=== PATIENT | female | born 1975 | race Caucasian/White ===

== ENCOUNTER 2016-12-06 15:24 | Emergency (ER) | payer OTHER ==
[~2016-12-06] VITALS: Ht 167.6 cm; Wt 91.1 kg
[~2016-12-06 15:24] MED LIST: ALKA-SELTZER P1 EAC7 PO; BACTRIM,SEPT1 TABLET PO; COLACE100 MG PO; ENDOCET 5-3251 EACH PO; IBUPROFEN800 MG PO; LORTAB 5-325 M1 EACH PO; MIRALAX255 GM PO; MOTRIN600 MG PO; NAPROSYN250 MG PO; NAPROSYN500 MG PO; PROZAC20 MG PO; SKELAXIN800 MG PO; SYNTHROID75 MCG PO; SYNTHROID88 MCG PO; ULTRAM50 MG PO
[2016-12-06] MEDS ORDERED: LOSARTAN POTASS50 MG PO (16:09)
[2016-12-06 16:14] LABS: ADD MIUA? YES; BILIRUBIN NEGATIVE; BLOOD NEGATIVE; COLOR YELLOW ((YELLOW)); GLUCOSE (STRIP) NEGATIVE; KETONES NEGATIVE; LEUKOCYTES NEGATIVE; NITRITE NEGATIVE; PROTEIN (STRIP) 30; SPECIFIC GRAVITY 1.027 (1.000-1.030); UROBILINOGEN 0.2 MG/DL (0.2-1.0)
[2016-12-06 16:16] LABS: HEMATOCRIT 37.2 % (36.0-46.0); MCH 29.1 PG (29.0-34.0); MCHC 32.8 G/DL (30.0-36.0); MCV 88.8 FL (83-99); MEAN PLAT.VOLUME 10.4 uM^3 (9.5-12.4); PLATELET COUNT 244 K/uL (156-360); RBC DIS.WIDTH-CV 12.7 % (11.8-14.6); RBC DIS.WIDTH-SD 41.2 % (39-53); RED BLOOD COUNT 4.19 M/uL (3.80-5.20); WHITE BLOOD COUNT 8.2 K/uL (4.1-10.2)
[2016-12-06 16:27] LABS: CHLORIDE 105 mEq/L (99-109); POTASSIUM 4.3 mEq/L (3.7-5.4); SODIUM 138 mEq/L (136-147)
[2016-12-06 16:28] LABS: AMYLASE 48 IU/L (1-118)
[2016-12-06 16:30] LABS: BACTERIA 1+ /HPF; EPITHELIAL CELLS 1+ /HPF; MUCUS 3+ /LPF; RED BLOOD CELLS 0-5 /HPF (0-5); UCUL ADDED? NO; WHITE BLOOD CELLS 0-5 /HPF (0-5)
[2016-12-06 16:30] LABS: GLUCOSE 86 mg/dL (70-99)
[2016-12-06 16:31] LABS: ANION GAP 9 MEQ/L (2-14); TOTAL BILIRUBIN 0.2 mg/dL (0.0-1.0)
[2016-12-06 16:33] LABS: ALKALINE PHOSPHATASE 47 IU/L (3-129); GFR ESTIMATE (CALCULATED) > 59 mL/min/
[2016-12-06 16:34] LABS: UREA NITROGEN (BUN) 16 mg/dL (9-23)
[2016-12-06 16:37] LABS: LIPASE 19 U/L (1.0-51.0)
[2016-12-06] MEDS ORDERED: ZANTAC300 MG PO (16:58)
[2016-12-06] MEDS ORDERED: TRAMADOL HCL50 MG PO (16:58)
[2016-12-06] MEDS ORDERED: NAPROSYN500 MG PO (16:58)
[2016-12-06 17:22] VITALS: BP 121/84
== END 2016-12-06 17:23 | disposition home or self-care (01) ==
LOC: EME 15:24
PROVIDERS: Physician Assistant
DX: R10.9 Unspecified abdominal pain (principal); Z87.442 Personal history of urinary calculi; Z88.0 Allergy status to penicillin; Z88.2 Allergy status to sulfonamides
CPT/HCPCS: 74176; 80053; 81003; 82150; 83690; 85027; 99281; 99284